=== PATIENT | female | born 1975 | race Caucasian/White ===

== ENCOUNTER → 2016-03-15 | Outpatient (CLI) | payer OTHER ==
[~2016-03-15] MED LIST: AMOXICILLIN500 MG PO; CEFUROXIME AXE250 MG PO; MACROBID100 M1 PO; MYCOSTATIN100000 U/M PO; NKHM; PERCOCET 325 MG1 TA2 PO; PREDNISONE50 MG PO; PROTONIX40 MG PO; ZOFRAN ODT4 MG SL
== END | disposition home or self-care (01) ==
LOC: RAD 09:53
DX: J32.9 Chronic sinusitis, unspecified (principal)

== ENCOUNTER 2016-06-06 12:52 | Emergency (ER) | payer OTHER ==
[~2016-06-06] VITALS: Ht 154.9 cm; Wt 65.8 kg
[2016-06-06 13:04] VITALS: BP 123/78
[2016-06-06] MEDS ORDERED: ZYRTEC10 MG PO (13:04)
[2016-06-06] MEDS ORDERED: SINGULAIR10 M1 PO (13:04)
[2016-06-06] MEDS ORDERED: PREDNISONE10 MG PO (15:16)
[2016-06-06] MEDS ORDERED: CYCLOBENZAPRINE10 MG PO (15:16)
== END 2016-06-06 15:09 | disposition home or self-care (01) ==
LOC: ED 12:52
DX: M54.5 Low back pain (principal); F17.200 Nicotine dependence, unspecified, uncomplicated; Z88.6 Allergy status to analgesic agent; Z87.442 Personal history of urinary calculi

== ENCOUNTER 2018-02-03 15:06 | Emergency (ER) | payer SELFPAY ==
[~2018-02-03] VITALS: Ht 157.4 cm; Wt 68.0 kg
[~2018-02-03 15:06] MED LIST changes: +CYCLOBENZAPRINE10 MG PO; +PREDNISONE10 MG PO; +SINGULAIR10 M1 PO; +ZYRTEC10 MG PO
[2018-02-03 15:07] VITALS: BP 126/81
[2018-02-03] MEDS ORDERED: DIFLUCAN150 MG PO (16:22)
== END 2018-02-03 16:18 | disposition home or self-care (01) ==
LOC: ED 15:06
DX: L02.211 Cutaneous abscess of abdominal wall (principal); L72.3 Sebaceous cyst; Z88.6 Allergy status to analgesic agent; Z79.899 Other long term (current) drug therapy; Z87.442 Personal history of urinary calculi

== ENCOUNTER → 2019-03-11 | Outpatient (CLI) | payer OTHER ==
[~2019-03-11] MED LIST changes: +DIFLUCAN150 MG PO
== END | disposition home or self-care (01) ==
LOC: RAD 13:17
DX: M54.2 Cervicalgia (principal); M54.12 Radiculopathy, cervical region; N64.4 Mastodynia; M79.605 Pain in left leg; M79.604 Pain in right leg; F17.210 Nicotine dependence, cigarettes, uncomplicated; R29.898 Other symptoms and signs involving the musculoskeletal system

== ENCOUNTER → 2019-04-22 | Outpatient (CLI) | payer OTHER | END | disposition home or self-care (01) | LOC: RAD 12:32 | DX: M17.11 Unilateral primary osteoarthritis, right knee (principal) ==

== ENCOUNTER → 2019-05-08 | Outpatient (CLI) | payer OTHER | END | disposition home or self-care (01) | LOC: MAMMO 03-19 14:00 | DX: N63.11 Unspecified lump in the right breast, upper outer quadrant (principal); N64.4 Mastodynia; N60.01 Solitary cyst of right breast ==

== ENCOUNTER → 2019-05-31 | Outpatient (CLI) | payer OTHER ==
[2019-05-31 13:45] LABS: BUN 10 mg/dl (7-24); CREATININE 0.71 mg/dL (0.55-1.02)
== END | disposition home or self-care (01) ==
LOC: LAB 12:30
PROVIDERS: Nurse Practitioner Acute Care
DX: N64.4 Mastodynia (principal); R92.8 Other abnormal and inconclusive findings on diagnostic imaging of breast

== ENCOUNTER 2021-04-27 12:38 | Emergency (ER) | payer OTHER ==
[~2021-04-27] VITALS: Wt 70.8 kg
[2021-04-27 12:51] VITALS: BP 129/83
[2021-04-27 14:14] LABS: BASO # 0.1 10*3/uL (0.0-0.1); BASO % 0.6 % (0.0-1.0); EOS # 0.2 10*3/uL (0.0-0.4); EOS % 1.3 % (1.0-4.0); HEMATOCRIT 43.2 % (37.0-47.0); LYMPH # 2.1 10*3/uL (1.3-4.4); LYMPH % 16.9 % (27.0-41.0); MEAN CELL VOLUME 89.1 fl (81.0-99.0); MEAN CORPUSCULAR HGB 30.5 pg (27.0-31.0); MEAN CORPUSCULAR HGB CONC 34.3 g/dl (33.0-37.0); MEAN PLATELET VOLUME 9.4 fl (9.6-12.3); MONO # 0.8 10*3/uL (0.1-1.0); MONO % 6.3 % (3.0-9.0); NEUT # 9.4 10*3/uL (2.3-7.9); NEUT % 74.6 % (47.0-73.0); PLATELET COUNT AUTOMATED 344 10*3/uL (130-400); RED BLOOD COUNT 4.85 10*6/uL (4.10-5.10); RED CELL DISTRI WIDTH 11.8 % (0-14.5); WHITE BLOOD COUNT 12.5 10*3/uL (4.8-10.8)
[2021-04-27 14:29] LABS: ALKALINE PHOSPHATASE 83 U/L (45-117); BUN 10 mg/dl (7-24); CHLORIDE 108 mmol/L (98-107); CREATININE 0.63 mg/dL (0.55-1.02); POTASSIUM 4.3 mmol/L (3.5-5.1); SGOT/AST 15 IU/L (3-35); SGPT/ALT 20 U/L (12-78); SODIUM 139 mmol/L (136-145); TOTAL PROTEIN 7.4 gm/dL (6.4-8.2)
== END 2021-04-27 15:53 | disposition home or self-care (01) ==
LOC: ED 12:38
PROVIDERS: Physician Assistant
DX: R51.9 Headache, unspecified (principal); R53.83 Other fatigue; R11.0 Nausea; J45.909 Unspecified asthma, uncomplicated; Z87.442 Personal history of urinary calculi; Z88.6 Allergy status to analgesic agent; Z79.899 Other long term (current) drug therapy; Z98.51 Tubal ligation status

== ENCOUNTER → 2021-06-30 | Outpatient (CLI) | payer OTHER | END | disposition home or self-care (01) | LOC: CT 08:57 | PROVIDERS: ATTEND Surgery | DX: N83.01 Follicular cyst of right ovary (principal) ==

== ENCOUNTER → 2021-07-19 | Day surgery (SDC) | payer OTHER ==
[~2021-07-19] VITALS: Ht 157.4 cm; Wt 68.9 kg
[~2021-07-19] MED LIST changes: +CARAFATE1 G1 PO; +NASAL SPRAY30 ML NAS; +PROTONIX20 MG PO; +VITAMIN D3 COM1 EACH PO
[2021-07-19 07:36] VITALS: BP 123/74
[2021-07-19 08:11] VITALS: BP 110/48
[2021-07-19 08:26] VITALS: BP 105/49
[2021-07-19 08:40] VITALS: BP 99/59
[2021-07-19 11:25] VITALS: BP 110/48
== END | disposition home or self-care (01) ==
LOC: SDC 07-15 10:15
PROVIDERS: ATTEND Surgery
DX: R10.13 Epigastric pain (principal); K29.50 Unspecified chronic gastritis without bleeding; K29.80 Duodenitis without bleeding; J45.909 Unspecified asthma, uncomplicated; Z98.890 Other specified postprocedural states; Z98.51 Tubal ligation status; Z79.899 Other long term (current) drug therapy

== ENCOUNTER → 2021-08-23 | Outpatient (CLI) | payer OTHER | END | disposition home or self-care (01) | LOC: NM 07:00 | PROVIDERS: ATTEND Surgery | DX: R10.13 Epigastric pain (principal) ==

== ENCOUNTER 2022-03-10 10:21 | Emergency (ER) | payer OTHER ==
[~2022-03-10] VITALS: Ht 157.4 cm; Wt 68.5 kg
[2022-03-10 11:25] VITALS: BP 134/79
[2022-03-10] MEDS ORDERED: TOPIRAMATE50 M2 PO (11:28)
[2022-03-10] MEDS ORDERED: CLARITIN10 MG PO (11:28)
[2022-03-10] MEDS ORDERED: VITAMIN D250 MCG PO (11:29)
[2022-03-10] MEDS ORDERED: METOCLOPRAMIDE10 M1 PO (11:30)
[2022-03-10] MEDS ORDERED: VIBRA-TAB100 MG PO (11:56)
== END 2022-03-10 12:15 | disposition home or self-care (01) ==
LOC: ED 10:21
DX: J01.00 Acute maxillary sinusitis, unspecified (principal); J01.10 Acute frontal sinusitis, unspecified; G43.909 Migraine, unspecified, not intractable, without status migrainosus; Z88.8 Allergy status to other drugs, medicaments and biological substances; Z79.899 Other long term (current) drug therapy; Z98.51 Tubal ligation status

== ENCOUNTER → 2023-02-02 | Outpatient (CLI) | payer OTHER ==
[~2023-02-02] MED LIST changes: +CLARITIN10 MG PO; +METOCLOPRAMIDE10 M1 PO; +TOPIRAMATE50 M2 PO; +VIBRA-TAB100 MG PO; +VITAMIN D250 MCG PO
[2023-02-02 08:13] LABS: BASO # 0.1 10*3/uL (0.0-0.1); BASO % 0.6 % (0.0-1.0); EOS # 0.1 10*3/uL (0.0-0.4); EOS % 0.9 % (1.0-4.0); HEMATOCRIT 35.6 % (37.0-47.0); LYMPH # 1.8 10*3/uL (1.3-4.4); LYMPH % 21.3 % (27.0-41.0); MEAN CELL VOLUME 77.7 fl (81.0-99.0); MEAN CORPUSCULAR HGB 24.7 pg (27.0-31.0); MEAN CORPUSCULAR HGB CONC 31.7 g/dl (33.0-37.0); MEAN PLATELET VOLUME 9.3 fl (9.6-12.3); MONO # 0.6 10*3/uL (0.1-1.0); MONO % 7.1 % (3.0-9.0); NEUT % 69.9 % (47.0-73.0); PLATELET COUNT AUTOMATED 399 10*3/uL (130-400); RED BLOOD COUNT 4.58 10*6/uL (4.10-5.10); RED CELL DISTRI WIDTH 15.8 % (0-14.5); WHITE BLOOD COUNT 8.5 10*3/uL (4.8-10.8)
[2023-02-02 08:52] LABS: ALKALINE PHOSPHATASE 81 U/L (46-116); BUN 13 mg/dl (9-23); CHLORIDE 109 mmol/L (98-107); CHOLESTEROL 170 mg/dL (<200); LDL CHOLESTEROL 109 mg/dL (9-159); POTASSIUM 4.2 mmol/L (3.4-5.1); SGPT/ALT 12 U/L (5-49); TOTAL PROTEIN 6.7 gm/dL (6.0-8.0); TRIGLYCERIDES 101 mg/dl (<150)
[2023-02-02 09:54] LABS: FREE T4 1.05 ng/dl (0.89-1.76)
== END | disposition home or self-care (01) ==
LOC: LAB 07:59
PROVIDERS: ATTEND Nurse Practitioner Primary Care
DX: E55.9 Vitamin D deficiency, unspecified (principal); E05.90 Thyrotoxicosis, unspecified without thyrotoxic crisis or storm

== ENCOUNTER → 2024-10-25 | Outpatient (CLI) | payer OTHER ==
[2024-10-25 08:52] LABS: BASO # 0.1 10*3/uL (0.0-0.1); BASO % 0.7 % (0.0-1.0); EOS # 0.1 10*3/uL (0.0-0.4); EOS % 0.8 % (1.0-4.0); MEAN CELL VOLUME 65.2 fl (81.0-99.0); MEAN CORPUSCULAR HGB 17.7 pg (27.0-31.0); MEAN PLATELET VOLUME 8.6 fl (9.6-12.3); MONO # 0.6 10*3/uL (0.1-1.0); MONO % 7.2 % (3.0-9.0); NEUT # 5.7 10*3/uL (2.3-7.9); NEUT % 68.4 % (47.0-73.0); NUCLEATED RED BLOOD CELL 0.0 % (0.0-0.0); NUCLEATED RED BLOOD CELL 0.0 10*3/uL (0.0-0.0); PLATELET COUNT AUTOMATED 506 10*3/uL (130-400); RED CELL DISTRI WIDTH 21.7 % (0-14.5)
[2024-10-25 09:35] LABS: BUN 9 mg/dl (9-23); LDL CHOLESTEROL 94 mg/dL (9-159); SGPT/ALT 26 U/L (5-49)
[2024-10-25 09:36] LABS: VITAMIN D, 25-HYDROXY 56.9 ng/mL (30-100)
== END | disposition home or self-care (01) ==
LOC: LAB 08:35
PROVIDERS: ATTEND Nurse Practitioner Family
DX: Z13.0 Encounter for screening for diseases of the blood and blood-forming organs and certain disorders involving the immune mechanism (principal); Z13.29 Encounter for screening for other suspected endocrine disorder; Z13.1 Encounter for screening for diabetes mellitus; Z13.220 Encounter for screening for lipoid disorders; Z79.899 Other long term (current) drug therapy; I48.91 Unspecified atrial fibrillation

== ENCOUNTER → 2024-12-11 | Outpatient (CLI) | payer OTHER ==
[2024-12-11 12:08] LABS: MEAN CELL VOLUME 79.3 fl (81.0-99.0); MEAN CORPUSCULAR HGB 24.8 pg (27.0-31.0); MEAN PLATELET VOLUME 9.9 fl (9.6-12.3); NUCLEATED RED BLOOD CELL 0.0 % (0.0-0.0); NUCLEATED RED BLOOD CELL 0.0 10*3/uL (0.0-0.0); PLATELET COUNT AUTOMATED 397 10*3/uL (130-400)
[2024-12-11 12:17] LABS: MANUAL DIFF REFLEX YES
[2024-12-11 12:23] LABS: BASOPHILS 1 % (0-1)
[2024-12-11 12:30] LABS: PLATELET SUFFICIENCY NORMAL (NORMAL)
== END | disposition home or self-care (01) ==
LOC: LAB 11:08
PROVIDERS: ATTEND Nurse Practitioner Family
DX: D50.9 Iron deficiency anemia, unspecified (principal)